=== PATIENT | female | born 1950 | race Caucasian/White ===

== ENCOUNTER 2019-08-24 10:15 | Outpatient (CLI) | payer BC | END 2019-08-24 23:59 | disposition home or self-care (01) | LOC: CFH 10:15 | PROVIDERS: ATTEND Nurse Practitioner | DX: R10.13 Epigastric pain (principal) | CPT/HCPCS: 76700 ==

== ENCOUNTER 2019-08-28 18:40 | Observation (INO) | payer BC ==
[~2019-08-28] VITALS: Ht 167.6 cm; Wt 64.3 kg
--- NOTE | 2019-08-28 19:29 | NUR ---
PT HAS CO OF DISCOMFORT IN ABDOMENT. PT STATES SHE HAD CT RECENTLY AND A MASS WAS FOUND ON PANCREAS AND LIVER, BEEN CAUSING DISCOMFORT IN ABODMEN, PT HAS BEEN SELF MEDICATING W TYELENOL EXTRA STRENGTH.
[2019-08-28] MEDS ORDERED: HYDROmorphone 1 MG/ML, 1ML INJ ONE (19:52)
[2019-08-28] MEDS ORDERED: ONDANSETRON 2MG/ML, 2ML ONE ×2 (19:52→21:28)
[2019-08-28] MEDS ORDERED: ONDANSETRON 2MG/ML, 2ML IVPush ONE ×2 (20:00→21:30)
[2019-08-28] MEDS ORDERED: SODIUM CHLORIDE FLUSH 10ML SYR IVF ONE (20:00)
[2019-08-28] MEDS ORDERED: HYDROmorphone 2 MG/ML, 1ML IVPush PRN ×2 (20:00→22:00)
--- NOTE | 2019-08-28 20:17 | NUR ---
MEDICATED FOR PAIN. VSS, NO NEEDS AT THIS TIME
[2019-08-28 20:22] LABS: BASOPHILS # (AUTO) 0.03 x10^3/uL (0-0.1); BASOPHILS % (AUTO) 1 % (0-1); EOSINOPHILS # (AUTO) 0.07 x10^3/uL (0-0.4); EOSINOPHILS % (AUTO) 1 % (1-7); LYMPHOCYTES # (AUTO) 1.87 x10^3/uL (1-3.4); LYMPHOCYTES % (AUTO) 34 % (22-44); MD NO; MEAN CORPUSCULAR HEMOGLOBIN 31.2 pg (27.0-34.8); MEAN CORPUSCULAR HGB CONC 34.1 g/dL (32.4-35.8); MEAN CORPUSCULAR VOLUME 91.4 fL (80-100); MEAN PLATELET VOLUME 8.4 fL (7.4-10.4); MONOCYTES # (AUTO) 0.44 x10^3/uL (0.2-0.8); MONOCYTES % (AUTO) 8 % (2-9); NEUTROPHILS # (AUTO) 3.07 x10^3/uL (1.8-6.8); NEUTROPHILS % (AUTO) 56 % (42-75); PLATELET COUNT 249 x10^3/uL (130-400); RED BLOOD COUNT 4.87 x10^6/uL (3.82-5.3)
[2019-08-28 20:33] LABS: ALANINE AMINOTRANSFERASE 43 U/L (12-78); ALBUMIN 3.9 g/dL (3.4-5.0); ANION GAP 7 mmol/L (5-15); CHLORIDE 109 mmol/L (98-107); CREATININE 0.58 mg/dL (0.55-1.02)
[2019-08-28 20:35] LABS: ALKALINE PHOSPHATASE 106 U/L (45-117); BILIRUBIN,TOTAL 0.6 mg/dL (0.2-1.0); TOTAL PROTEIN 8.1 g/dL (6.4-8.2)
--- NOTE | 2019-08-28 21:01 | NUR ---
REPORT FROM BELINDA PIERCE.
--- NOTE | 2019-08-28 21:46 | NUR ---
PT VOMITING, MEDICATED PER MAR. PT DENIES ANY PAIN AT THIS TIME. FAMILY AT BS FOR SUPPORT, ALL MONITORING IN PLACE, CALL LIGHT WITHIN REACH.
[2019-08-28] MEDS ORDERED: KETOROLAC 30 MG/1 ML IV PRN (22:00)
[2019-08-28] MEDS ORDERED: SODIUM CHLORIDE 0.9% 1,000 ML IV SCH (22:00)
[2019-08-28] MEDS ORDERED: POLYETHYLENE GLYCOL 17 GM PACKET PO PRN (22:00)
[2019-08-28] MEDS ORDERED: ACETAMINOPHEN 325 MG TABLET PO PRN (22:00)
[2019-08-28] MEDS ORDERED: BISACODYL 10 MG SUPP PR PRN (22:00)
[2019-08-28] MEDS ORDERED: TEMAZEPAM 15 MG CAPSULE PO PRN (22:00)
[2019-08-28] MEDS ORDERED: ENOXAPARIN 40 MG/0.4 ML SQ SCH (22:00)
[2019-08-28] MEDS ORDERED: ONDANSETRON 2MG/ML, 2ML IVPush PRN (22:00)
[2019-08-28] MEDS ORDERED: PROMETHAZINE 25 MG/ML, 1ML IM PRN (22:00)
[2019-08-28] MEDS ORDERED: ENALAPRILAT 1.25 MG/ML, 2ML IVPush PRN (22:00)
[2019-08-28] MEDS ORDERED: LABETALOL 5MG/ML, 20ML IVPush PRN (22:00)
[2019-08-28] MEDS ORDERED: OXYcodone IR 5MG TABLET PO PRN (22:00)
[2019-08-28] MEDS ORDERED: IBUPROFEN 600 MG TABLET PO PRN (22:00)
[2019-08-28 23:45] VITALS: BP 115/73
[2019-08-29 02:28] VITALS: BP 111/72
[2019-08-29 07:30] VITALS: BP 112/72
[2019-08-29] MEDS ORDERED: morphine SULFATE 10 MG/ML, 1ML IVPush PRN (08:00)
[2019-08-29 08:56] LABS: INTERNATIONAL NORMALIZED RATIO 1.07 (0.93-1.1); PROTHROMBIN TIME 11.4 Seconds (9.6-11.5)
[2019-08-29] MEDS: SENNA/DOCUSATE TABLET PO SCH ×2 (10:37→10:42)
[2019-08-29] MEDS ORDERED: ACET325T26 PO (16:07)
[2019-08-29 16:08] VITALS: BP 145/88
[2019-08-29 16:12] VITALS: BP 123/79
== END 2019-08-29 18:32 | disposition home or self-care (01) ==
LOC: ED 20:29 → INTOOBSV 21:31 → EDIP 21:31 → 3N 22:06
PROVIDERS: ADMIT Internal Medicine; ATTEND Internal Medicine
DX: R10.11 Right upper quadrant pain (principal); K86.89 Other specified diseases of pancreas; R11.2 Nausea with vomiting, unspecified; J98.11 Atelectasis; C25.9 Malignant neoplasm of pancreas, unspecified; Z90.710 Acquired absence of both cervix and uterus
CPT/HCPCS: 36415; 71045; 71260; 80053; 82150; 82378; 83690; 85025; 85610; 86301; 93005; 96361; 96372; 96374; 96375; 96376; 99285; G0378; J1170; J1650; J2405; J7030

== ENCOUNTER → 2019-08-28 | Outpatient (CLI) | payer BC ==
[~2019-08-28] MED LIST: ACET325T26 PO; OMNIPAQUE 350 MG/ML, 100ML BOTTLE ONE
== END | disposition home or self-care (01) ==
LOC: CFH 08:15
PROVIDERS: ATTEND Nurse Practitioner
DX: K86.89 Other specified diseases of pancreas (principal)
CPT/HCPCS: 74170; Q9967

== ENCOUNTER 2019-09-01 06:37 | Day surgery (SDC) | payer BC ==
[~2019-09-01] VITALS: Ht 167.6 cm; Wt 73.7 kg
[~2019-09-01 06:37] MED LIST changes: -OMNIPAQUE 350 MG/ML, 100ML BOTTLE ONE
[2019-09-01 08:18] VITALS: BP 142/88
[2019-09-01] MEDS ORDERED: PROPOFOL 50 ML ONE (08:42)
[2019-09-01] MEDS ORDERED: LABETALOL 5MG/ML, 20ML IV PRN (09:30)
[2019-09-01] MEDS ORDERED: FENTANYL PF 100 MCG/2ML IV PRN (09:30)
[2019-09-01] MEDS ORDERED: PROMETHAZINE 25 MG/ML, 1ML IV PRN (09:30)
[2019-09-01] MEDS ORDERED: DIPHENHYDRAMINE 50 MG/ML, 1ML IVPush PRN (09:30)
[2019-09-01] MEDS ORDERED: MIDAZOLAM 1 MG/ML, 2ML IV PRN (09:30)
[2019-09-01] MEDS ORDERED: ONDANSETRON 2MG/ML, 2ML IV PRN (09:30)
[2019-09-01] MEDS ORDERED: EPHEDRINE 50 MG/ML, 1ML IM PRN (09:30)
[2019-09-01] MEDS ORDERED: DIAZEPAM 5 MG/ML, 2ML IVPush PRN (09:30)
[2019-09-01] MEDS ORDERED: ONDANSETRON ODT 8 MG PO PRN (09:30)
[2019-09-01] MEDS ORDERED: EPHEDRINE 50 MG/ML, 1ML IVPush PRN (09:30)
[2019-09-01] MEDS ORDERED: LABETALOL 5MG/ML, 20ML ONE (10:04)
[2019-09-01] MEDS ORDERED: FENTANYL PF 100 MCG/2ML ONE (10:13)
== END 2019-09-01 11:30 | disposition home or self-care (01) ==
LOC: OUT 06:37
PROVIDERS: ATTEND Internal Medicine
DX: K86.89 Other specified diseases of pancreas (principal); C25.1 Malignant neoplasm of body of pancreas; Z90.710 Acquired absence of both cervix and uterus
CPT/HCPCS: 43242; 88172; 88173; 88307; J2704; J3010

== ENCOUNTER 2019-10-17 13:49 | Emergency (ER) | payer BC ==
[~2019-10-17] VITALS: Ht 165.1 cm; Wt 65.0 kg
--- NOTE | 2019-10-17 14:01 | NUR ---
CALLED PT TO TRIAGE. PT IN BATHROOM
[2019-10-17] MEDS ORDERED: ONDANSETRON 2MG/ML, 2ML ONE (14:28)
[2019-10-17] MEDS ORDERED: ONDANSETRON 2MG/ML, 2ML IVPush ONE (14:30)
[2019-10-17] MEDS ORDERED: SODIUM CHLORIDE 0.9% 1,000ML IVBOLUS ONE (14:30)
[2019-10-17] MEDS ORDERED: SODIUM CHLORIDE FLUSH 10ML SYR IVF ONE (14:30)
--- NOTE | 2019-10-17 14:50 | NUR ---
TASK RN: PT MEDICATED AND 1L NS BOLUS STARTED. LAB IN ROOM.
[2019-10-17 15:34] LABS: ALANINE AMINOTRANSFERASE 257 U/L (12-78); ALBUMIN 3.6 g/dL (3.4-5.0); ANION GAP 11 mmol/L (5-15); CALCIUM 9.4 mg/dL (8.5-10.1); CHLORIDE 101 mmol/L (98-107); CREATININE 0.66 mg/dL (0.55-1.02)
[2019-10-17 15:37] LABS: ALKALINE PHOSPHATASE 364 U/L (45-117); BILIRUBIN,TOTAL 0.6 mg/dL (0.2-1.0); TOTAL PROTEIN 7.8 g/dL (6.4-8.2)
[2019-10-17 15:39] LABS: BASOPHILS # (AUTO) 0.01 x10^3/uL (0-0.1); BASOPHILS % (AUTO) 0 % (0-1); EOSINOPHILS # (AUTO) 0.03 x10^3/uL (0-0.4); EOSINOPHILS % (AUTO) 1 % (1-7); LYMPHOCYTES # (AUTO) 0.92 x10^3/uL (1-3.4); LYMPHOCYTES % (AUTO) 19 % (22-44); MD NO; MEAN CORPUSCULAR HEMOGLOBIN 31.5 pg (27.0-34.8); MEAN CORPUSCULAR HGB CONC 34.2 g/dL (32.4-35.8); MEAN CORPUSCULAR VOLUME 92.1 fL (80-100); MEAN PLATELET VOLUME 8.2 fL (7.4-10.4); MONOCYTES # (AUTO) 0.54 x10^3/uL (0.2-0.8); MONOCYTES % (AUTO) 11 % (2-9); NEUTROPHILS # (AUTO) 3.46 x10^3/uL (1.8-6.8); NEUTROPHILS % (AUTO) 70 % (42-75); PLATELET COUNT 195 x10^3/uL (130-400); RED BLOOD COUNT 4.79 x10^6/uL (3.82-5.3); RED CELL DISTRIBUTION WIDTH 12.3 % (9.6-15.2)
--- NOTE | 2019-10-17 15:59 | NUR ---
PT AMBULATED TO BR WITH STEADY GAIT, UA SAMPLE COLLECTED AND SENT TO LAB, PT UNABLE TO PRODUCE BM SAMPLE. PT BACK TO [facility] AT THIS TIME. 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
[2019-10-17 16:22] LABS: MICROSCOPIC INDICATED
[2019-10-17 16:34] LABS: CULTURE INDICATED? NO
--- NOTE | 2019-10-17 17:07 | NUR ---
ABD US COMPLETED AT BEDSIDE. VSS
[2019-10-17] MEDS ORDERED: HYDROmorphone 1 MG/ML, 1ML INJ ONE (17:48)
[2019-10-17] MEDS ORDERED: HYDROmorphone 1 MG/ML, 1ML INJ IV ONE (18:00)
[2019-10-17 18:39] LABS: CLOSTRIDIUM DIFFICILE ANTIGEN NEGATIVE; CLOSTRIDIUM DIFFICILE TOXIN NEGATIVE (Negative)
--- NOTE | 2019-10-17 18:45 | NUR ---
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
--- NOTE | 2019-10-17 19:13 | NUR ---
PT RESTING ON GURNEY, PROVIDED PT WITH WATER AND JUICE, MONITORS IN PLACE, CALL LIGHT WITHIN REACH. ERP AT BEDSIDE FOR RECHECK
[2019-10-17 19:20] VITALS: BP 124/59
== END 2019-10-17 19:33 | disposition home or self-care (01) ==
LOC: ED 15:40
DX: R11.2 Nausea with vomiting, unspecified (principal); R19.7 Diarrhea, unspecified
CPT/HCPCS: 36415; 74021; 76700; 80053; 81001; 83605; 83690; 85025; 87324; 89055; 93005; 96361; 96374; 96375; 99285; J1170; J2405; J7030

== ENCOUNTER 2019-10-19 13:30 | Inpatient (IN) | payer BC ==
[~2019-10-19] VITALS: Ht 165.1 cm; Wt 65.1 kg
--- NOTE | 2019-10-19 13:54 | NUR ---
FIRST CONTACT WITH PT. PT HERE BECAUSE SHE HAS N/V, PT REPORTS SHE HAS NOT BEEN ABLE TO KEEP ANYTHING DOWN SINCE . WAS GIVEN ZOFRAN AND DILUDID AND MADE HER FEEL BETTER. PT GOT MEDICATIONS TO GO BUT PHENERGAN SUPPOSITORIES ARE NOT WORKING. PT REPORTS SHE DID NOT FILL RX UNTIL TODAY. PT TOOK A "COPEZIUM" PT'S AOX4. RESPS EVEN AND UNLABORED. BP/SPO2 MONITORS IN PLACE. CALL LIGHT WITHIN REACH.
--- NOTE | 2019-10-19 14:05 | NUR ---
EDMD AT BEDSIDE TO EVALUATE AT THIS TIME.
[2019-10-19] MEDS ORDERED: PROMETHAZINE 25 MG/ML, 1ML ONE (14:21)
[2019-10-19] MEDS ORDERED: FAMOTIDINE 20 MG/2 ML ONE (14:21)
--- NOTE | 2019-10-19 14:23 | NUR ---
PT AMB TO BR WITH STEADY GAIT. HAT AND URINE CUP GIVEN.
[2019-10-19] MEDS ORDERED: FAMOTIDINE 20 MG/2 ML IV ONE (14:30)
[2019-10-19] MEDS ORDERED: PROMETHAZINE 25 MG/ML, 1ML IM ONE (14:30)
[2019-10-19] MEDS ORDERED: SODIUM CHLORIDE FLUSH 10ML SYR IVF ONE (14:30)
[2019-10-19] MEDS ORDERED: SODIUM CHLORIDE 0.9% 1,000ML IVBOLUS ONE (14:30)
--- NOTE | 2019-10-19 14:32 | NUR ---
PT PROVIDED STOOL SAMPLE. THIS RN WALKED TO LAB. PT IS NOT ABLE TO PROVIDE URINE SAMPLE AT THIS TIME. PT ALSO C/O LASHAUNY IN BR. EDMD NOTIFIED. EKG DONE AT BEDSIDE BY EMT AT THIS TIME.
[2019-10-19 14:55] LABS: BASOPHILS # (AUTO) 0.01 x10^3/uL (0-0.1); BASOPHILS % (AUTO) 0 % (0-1); EOSINOPHILS # (AUTO) 0.11 x10^3/uL (0-0.4); EOSINOPHILS % (AUTO) 1 % (1-7); LYMPHOCYTES # (AUTO) 1.47 x10^3/uL (1-3.4); LYMPHOCYTES % (AUTO) 20 % (22-44); MD NO; MEAN CORPUSCULAR HEMOGLOBIN 30.7 pg (27.0-34.8); MEAN CORPUSCULAR HGB CONC 33.4 g/dL (32.4-35.8); MEAN CORPUSCULAR VOLUME 91.9 fL (80-100); MEAN PLATELET VOLUME 8.1 fL (7.4-10.4); MONOCYTES # (AUTO) 0.86 x10^3/uL (0.2-0.8); MONOCYTES % (AUTO) 12 % (2-9); NEUTROPHILS # (AUTO) 4.89 x10^3/uL (1.8-6.8); NEUTROPHILS % (AUTO) 67 % (42-75); PLATELET COUNT 274 x10^3/uL (130-400); RED BLOOD COUNT 5.48 x10^6/uL (3.82-5.3); RED CELL DISTRIBUTION WIDTH 12.6 % (9.6-15.2)
--- NOTE | 2019-10-19 14:58 | NUR ---
PT MEDICATED PER EMAR. PT TOLERATED WELL. ALL MONITORS IN PLACE. CALL LIGHT WITHIN REACH. NS INFUSING AT THIS TIME.
[2019-10-19 15:01] LABS: ALANINE AMINOTRANSFERASE 146 U/L (12-78); ALBUMIN 4.1 g/dL (3.4-5.0); ANION GAP 12 mmol/L (5-15); CALCIUM 9.8 mg/dL (8.5-10.1); CHLORIDE 100 mmol/L (98-107); CREATININE 0.83 mg/dL (0.55-1.02)
[2019-10-19 15:04] LABS: ALKALINE PHOSPHATASE 290 U/L (45-117); BILIRUBIN,TOTAL 0.7 mg/dL (0.2-1.0); TOTAL PROTEIN 8.7 g/dL (6.4-8.2)
--- NOTE | 2019-10-19 15:08 | NUR ---
ISOLATION CART PLACED.
[2019-10-19 15:14] LABS: CLOSTRIDIUM DIFFICILE ANTIGEN NEGATIVE; CLOSTRIDIUM DIFFICILE TOXIN NEGATIVE (Negative)
--- NOTE | 2019-10-19 15:48 | NUR ---
PT RESTING IN [facility]. PT'S AOX4. RESPS EVEN AND UNLABORED. ALL MONITORS IN PLACE. CALL LIGHT WITHIN REACH.
[2019-10-19] MEDS ORDERED: PROMETHAZINE 25 MG/ML, 1ML IM PRN (16:30)
[2019-10-19] MEDS ORDERED: BACLOFEN 10 MG TABLET PO PRN (16:30)
[2019-10-19] MEDS ORDERED: LABETALOL 5MG/ML, 20ML IVPush PRN (16:30)
[2019-10-19] MEDS ORDERED: METOCLOPRAMIDE 5 MG/ML, 2ML IVPush PRN (16:30)
[2019-10-19] MEDS ORDERED: GABAPENTIN 300 MG CAPSULE PO PRN (16:30)
[2019-10-19] MEDS ORDERED: ONDANSETRON ODT 4 MG PO PRN (16:30)
[2019-10-19] MEDS ORDERED: hydrALAzine 20 MG/ML, 1ML IVPush PRN (16:30)
--- NOTE | 2019-10-19 16:42 | NUR ---
REPORT GIVEN TO FLO TREVINO. ALL QUESTIONS ANSWERED.
[2019-10-19] MEDS ORDERED: PLEASE ENTER WEIGHT MC SCH (17:00)
[2019-10-19 17:27] VITALS: BP 106/82
[2019-10-19] MEDS: ENOXAPARIN 40 MG/0.4 ML SQ SCH (18:29)
[2019-10-19] MEDS ORDERED: POLY17PO5 PO (19:08)
[2019-10-19] MEDS ORDERED: ONDA4TAB7 PO (19:08)
[2019-10-19] MEDS ORDERED: DOCU240C15 PO (19:08)
[2019-10-19] MEDS ORDERED: PROM12.57 PO (19:08)
[2019-10-19] MEDS ORDERED: LOPE-114 PO (19:08)
[2019-10-19] MEDS ORDERED: OXYC10TA47 PO (19:08)
[2019-10-19] MEDS ORDERED: HYDR-3240 PO (19:08)
[2019-10-19] MEDS: D5%-0.45NACL+KCL 20MEQ 1,000 ML IV SCH (19:31)
[2019-10-19 20:10] VITALS: BP 125/82
[2019-10-19] MEDS ORDERED: TRAZODONE 50MG TABLET PO PRN (21:00)
[2019-10-19 21:06] LABS: MICROSCOPIC INDICATED
[2019-10-19 21:19] LABS: CULTURE INDICATED? NO
[2019-10-19] MEDS: ONDANSETRON 2MG/ML, 2ML IVPush PRN (22:03)
[2019-10-19] MEDS ORDERED: LIDOCAINE/PRILOCAINE CRM W/TEG 5GM TP ONE (23:30)
[2019-10-19] MEDS ORDERED: LORazepam 2 MG/ML, 1ML IVPush PRN (23:30)
[2019-10-20 01:29] VITALS: BP 119/83
[2019-10-20 06:03] LABS: BASOPHILS # (AUTO) 0.02 x10^3/uL (0-0.1); BASOPHILS % (AUTO) 1 % (0-1); EOSINOPHILS # (AUTO) 0.13 x10^3/uL (0-0.4); EOSINOPHILS % (AUTO) 3 % (1-7); LYMPHOCYTES # (AUTO) 1.67 x10^3/uL (1-3.4); LYMPHOCYTES % (AUTO) 34 % (22-44); MD NO; MEAN CORPUSCULAR HGB CONC 33.5 g/dL (32.4-35.8); MEAN CORPUSCULAR VOLUME 92.4 fL (80-100); MONOCYTES # (AUTO) 0.75 x10^3/uL (0.2-0.8); MONOCYTES % (AUTO) 15 % (2-9); NEUTROPHILS # (AUTO) 2.29 x10^3/uL (1.8-6.8); NEUTROPHILS % (AUTO) 47 % (42-75); PLATELET COUNT 159 x10^3/uL (130-400); RED CELL DISTRIBUTION WIDTH 12.6 % (9.6-15.2)
[2019-10-20 06:13] LABS: ANION GAP 6 mmol/L (5-15); CALCIUM 8.5 mg/dL (8.5-10.1); CHLORIDE 107 mmol/L (98-107); CREATININE 0.57 mg/dL (0.55-1.02)
[2019-10-20] MEDS: D5%-0.45NACL+KCL 20MEQ 1,000 ML IV SCH ×3 (07:31→19:39)
[2019-10-20] MEDS: ONDANSETRON 2MG/ML, 2ML IVPush PRN (07:40)
[2019-10-20] MEDS ORDERED: MAGNESIUM SULFATE PMX 2GM/50ML 50 ML IV ONE (08:00)
[2019-10-20 08:07] VITALS: BP 122/80
[2019-10-20 11:58] VITALS: BP 121/76
[2019-10-20] MEDS ORDERED: MORPHINE SULFATE 4 MG/ML, 1ML IVPush PRN (12:00)
[2019-10-20] MEDS ORDERED: LOPERAMIDE 2 MG CAPSULE ONE (12:17)
[2019-10-20] MEDS ORDERED: LORazepam 2 MG/ML, 1ML ONE (12:17)
[2019-10-20] MEDS: LOPERAMIDE 2 MG CAPSULE PO PRN ×2 (12:23→14:45)
[2019-10-20] MEDS: LORazepam 2 MG/ML, 1ML IVPush PRN (12:24)
[2019-10-20] MEDS: HYOSCYAMINE 0.125 MG TABLET PO SCH ×3 (15:25→22:48)
[2019-10-20 17:08] VITALS: BP 115/71
[2019-10-20] MEDS: ENOXAPARIN 40 MG/0.4 ML SQ SCH (17:09)
[2019-10-20] MEDS ORDERED: DEXAMETHASONE 10 MG in SODIUM CHLORIDE 0.9% 50 ML IV ONE (18:30)
[2019-10-20] MEDS ORDERED: DEXAMETHASONE 4 MG/ML, 5ML IVPush ONE (18:30)
[2019-10-20] MEDS ORDERED: DIPHENOXYLATE/ATROPINE TABLET PO PRN (18:30)
[2019-10-20 19:56] VITALS: BP 106/60
[2019-10-21] MEDS: LOPERAMIDE 2 MG CAPSULE PO PRN ×3 (00:49→15:31)
[2019-10-21 00:59] VITALS: BP 124/71
[2019-10-21] MEDS: HYOSCYAMINE 0.125 MG TABLET PO SCH ×6 (02:15→22:17)
[2019-10-21] MEDS: ACETAMINOPHEN 325 MG TABLET PO PRN (02:15)
[2019-10-21 05:21] LABS: ALBUMIN 2.8 g/dL (3.4-5.0); ANION GAP 8 mmol/L (5-15); CALCIUM 8.2 mg/dL (8.5-10.1); CHLORIDE 106 mmol/L (98-107)
[2019-10-21] MEDS: D5%-0.45NACL+KCL 20MEQ 1,000 ML IV SCH ×2 (05:21→15:14)
[2019-10-21 05:22] LABS: CREATININE 0.56 mg/dL (0.55-1.02)
[2019-10-21 06:07] LABS: MEAN CORPUSCULAR HEMOGLOBIN 30.9 pg (27.0-34.8); MEAN CORPUSCULAR HGB CONC 33.7 g/dL (32.4-35.8); MEAN CORPUSCULAR VOLUME 91.5 fL (80-100); MEAN PLATELET VOLUME 8.4 fL (7.4-10.4); PLATELET COUNT 147 x10^3/uL (130-400); RED BLOOD COUNT 4.01 x10^6/uL (3.82-5.3); RED CELL DISTRIBUTION WIDTH 12.6 % (9.6-15.2)
[2019-10-21 06:11] LABS: BASOPHILS # (AUTO) 0.01 x10^3/uL (0-0.1); BASOPHILS % (AUTO) 0 % (0-1); EOSINOPHILS % (AUTO) 0 % (1-7); LYMPHOCYTES # (AUTO) 0.62 x10^3/uL (1-3.4); LYMPHOCYTES % (AUTO) 22 % (22-44); MD SCAN; MONOCYTES % (AUTO) 11 % (2-9); NEUTROPHILS # (AUTO) 1.82 x10^3/uL (1.8-6.8); NEUTROPHILS % (AUTO) 66 % (42-75)
[2019-10-21 07:47] VITALS: BP 131/72
[2019-10-21] MEDS: LORazepam 2 MG/ML, 1ML IVPush PRN (11:21)
[2019-10-21 14:52] VITALS: BP 128/80
[2019-10-21] MEDS ORDERED: DEXAMETHASONE 20 MG in SODIUM CHLORIDE 0.9% 50 ML IV ONE (15:00)
[2019-10-21] MEDS ORDERED: DEXAMETHASONE 4 MG/ML, 1ML ONE (15:16)
[2019-10-21] MEDS: ENOXAPARIN 40 MG/0.4 ML SQ SCH (16:47)
[2019-10-21] MEDS: ONDANSETRON 2MG/ML, 2ML IVPush PRN (18:27)
[2019-10-21 19:54] VITALS: BP 133/85
[2019-10-22] MEDS: D5%-0.45NACL+KCL 20MEQ 1,000 ML IV SCH ×2 (00:18→09:21)
[2019-10-22] MEDS: ACETAMINOPHEN 325 MG TABLET PO PRN ×2 (00:21→14:30)
[2019-10-22 01:07] VITALS: BP 135/83
[2019-10-22] MEDS: HYOSCYAMINE 0.125 MG TABLET PO SCH ×5 (02:30→15:34)
[2019-10-22 05:31] LABS: MEAN CORPUSCULAR HEMOGLOBIN 31.1 pg (27.0-34.8); MEAN CORPUSCULAR HGB CONC 34.1 g/dL (32.4-35.8); MEAN CORPUSCULAR VOLUME 91.3 fL (80-100); MEAN PLATELET VOLUME 8.6 fL (7.4-10.4); PLATELET COUNT 165 x10^3/uL (130-400); RED BLOOD COUNT 4.08 x10^6/uL (3.82-5.3); RED CELL DISTRIBUTION WIDTH 12.7 % (9.6-15.2)
[2019-10-22 05:36] LABS: ALBUMIN 2.9 g/dL (3.4-5.0); ANION GAP 7 mmol/L (5-15); CALCIUM 8.5 mg/dL (8.5-10.1); CHLORIDE 107 mmol/L (98-107); CREATININE 0.51 mg/dL (0.55-1.02)
[2019-10-22 06:05] LABS: BASOPHILS % (AUTO) 0 % (0-1); EOSINOPHILS % (AUTO) 0 % (1-7); LYMPHOCYTES # (AUTO) 0.61 x10^3/uL (1-3.4); LYMPHOCYTES % (AUTO) 23 % (22-44); MD SCAN; MONOCYTES # (AUTO) 0.41 x10^3/uL (0.2-0.8); MONOCYTES % (AUTO) 15 % (2-9); NEUTROPHILS # (AUTO) 1.66 x10^3/uL (1.8-6.8); NEUTROPHILS % (AUTO) 62 % (42-75)
[2019-10-22 07:17] VITALS: BP 127/82
[2019-10-22] MEDS ORDERED: MAGNESIUM SULFATE PMX 2GM/50ML 50 ML IV ONE (07:30)
[2019-10-22] MEDS ORDERED: DIPH1TAB6 PO (12:52)
[2019-10-22 14:30] VITALS: BP 111/78
== END 2019-10-22 15:58 | disposition home or self-care (01) | DRG 435 ==
LOC: ED 14:18 → EDIP 15:25 → 3WST 16:51
PROVIDERS: ADMIT Family Medicine; ATTEND Family Medicine
DX: C25.9 Malignant neoplasm of pancreas, unspecified (principal); E43 Unspecified severe protein-calorie malnutrition; E86.0 Dehydration; T45.1X5A Adverse effect of antineoplastic and immunosuppressive drugs, initial encounter; Z68.23 Body mass index [BMI] 23.0-23.9, adult
CPT/HCPCS: 36415; 96361; 96372; 96374; 99285; J3490; 80048; 80053; 80069; 81001; 83605; 83690; 83735; 85025; 87324; 93005; G0378; J1100; J1650; J2405; J2550; J2060; J2270; J2765; J3475; J3480; J7030

== ENCOUNTER 2020-01-11 09:10 | Outpatient (CLI) | payer BC ==
[~2020-01-11 09:10] MED LIST changes: +DIPH1TAB6 PO; +DOCU240C15 PO; +HYDR-3240 PO; +LOPE-114 PO; +ONDA4TAB7 PO; +OXYC10TA47 PO; +POLY17PO5 PO; +PROM12.57 PO
[2020-01-11] MEDS ORDERED: OMNIPAQUE 350 MG/ML, 100ML BOTTLE ONE (14:51)
== END 2020-01-11 23:59 | disposition home or self-care (01) ==
LOC: CFH 09:10
PROVIDERS: ATTEND Internal Medicine Hematology & Oncology
DX: K76.0 Fatty (change of) liver, not elsewhere classified (principal); K57.30 Diverticulosis of large intestine without perforation or abscess without bleeding; N28.1 Cyst of kidney, acquired; R16.0 Hepatomegaly, not elsewhere classified; K86.89 Other specified diseases of pancreas
CPT/HCPCS: 74170; Q9967

== ENCOUNTER 2020-01-19 06:20 | Day surgery (SDC) | payer MEDICARE, BC ==
[~2020-01-19] VITALS: Ht 167.6 cm; Wt 62.3 kg
[2020-01-19 07:12] VITALS: BP 116/84
[2020-01-19 07:47] LABS: INTERNATIONAL NORMALIZED RATIO 1.04 (0.93-1.1)
[2020-01-19] MEDS ORDERED: FLUMAZENIL 0.1 MG/1 ML, 5ML ONE (08:03)
[2020-01-19] MEDS ORDERED: FENTANYL PF 100 MCG/2ML ONE (08:03)
[2020-01-19] MEDS ORDERED: NALOXONE 1 MG/ML, 2ML ONE (08:03)
[2020-01-19] MEDS ORDERED: MIDAZOLAM 1 MG/ML, 5ML ONE (08:03)
== END 2020-01-19 10:10 | disposition home or self-care (01) ==
LOC: OUT 06:20
PROVIDERS: ATTEND Internal Medicine Hematology & Oncology
DX: K76.89 Other specified diseases of liver (principal); K76.0 Fatty (change of) liver, not elsewhere classified; C25.1 Malignant neoplasm of body of pancreas; G47.30 Sleep apnea, unspecified; Z79.891 Long term (current) use of opiate analgesic; Z79.899 Other long term (current) drug therapy; Z87.442 Personal history of urinary calculi; Z88.8 Allergy status to other drugs, medicaments and biological substances; Z90.710 Acquired absence of both cervix and uterus; Z98.890 Other specified postprocedural states; Z83.3 Family history of diabetes mellitus; Z80.3 Family history of malignant neoplasm of breast; Z80.42 Family history of malignant neoplasm of prostate; Z80.8 Family history of malignant neoplasm of other organs or systems
CPT/HCPCS: 36415; 47000; 77012; 85610; 88307; 88333; 99156; 99157; J2250; J3010; J2310

== ENCOUNTER 2020-04-26 08:50 | Outpatient (CLI) | payer MEDICARE, BC ==
[2020-04-26] MEDS ORDERED: OMNIPAQUE 350 MG/ML, 100ML BOTTLE ONE (09:15)
== END 2020-04-26 23:59 | disposition home or self-care (01) ==
LOC: CFH 08:50
PROVIDERS: ATTEND Internal Medicine Hematology & Oncology
DX: C25.1 Malignant neoplasm of body of pancreas (principal); K86.89 Other specified diseases of pancreas; J84.10 Pulmonary fibrosis, unspecified; K57.90 Diverticulosis of intestine, part unspecified, without perforation or abscess without bleeding
CPT/HCPCS: 74178; Q9967